=== PATIENT | male | born 1950 | race Caucasian/White ===

== ENCOUNTER 2016-10-23 05:32 | Emergency (ER) | payer MEDICARE, OTHER ==
[2016-10-23] MEDS ORDERED: NORMAL SALINE 1000 ML 1,000 ML IV ONE (06:35)
[2016-10-23] MEDS ORDERED: MECLIZINE HCL 25 MG TABLET PO ONE (06:36)
--- NOTE | 2016-10-23 06:46 | ER Document Report ---
ED Cardiac - General Mode of Arrival: Ambulatory Information source: Patient TRAVEL OUTSIDE OF THE [place] IN LAST 30 DAYS: No <TRACI PALMER - Last Filed: 10/23/16 06:40> <MICHAEL PEREIRA - Last Filed: 10/23/16 08:25> - General Chief Complaint: Palpitations Stated Complaint: DIZZINESS/PALPATIONS Time Seen by Provider: 10/23/16 06:12 Notes: Patient is a 66 year old male who presents to the ED with complaints of palpitations, dizziness (room spinning) and feeling lightheaded and weak this morning when he woke up to take his dogs outside around 0400 this morning. Patient states he was nauseous but denies any vomiting. Patient states that he checked his blood pressure and it was 158/86, he has had high blood pressure in the past. Patient states he also has had the palpitations in the past. Last year around January patient has similar symptoms had wore a Holter monitor that showed PVCs but was otherwise normal. Patient has not had a chance to check his blood sugar yet this morning. He denies diaphoresis. (TRACI PALMER) - Related Data Allergies/Adverse Reactions: codeine Allergy (Verified 10/23/16 05:34) diclofenac sodium [From Voltaren] Allergy (Verified 10/23/16 05:34) RASH Sulfa (Sulfonamide Antibiotics) Allergy (Verified 10/23/16 05:34) Past Medical History - General Information source: Patient - Social History Smoking Status: Never Smoker Chew tobacco use (# tins/day): No Frequency of alcohol use: None Drug Abuse: None Family History: Reviewed & Not Pertinent, CAD - [place] (uncle)., Other - Lung CA ( father). Pulmonary Medical History: Reports: Hx Pneumonia EENT Medical History: Reports: Nose - seasonal allergies Endocrine Medical History: Reports: Hx Diabetes Mellitus Type 2 - on metformin. GI Medical History: Reports: Hx Gastroesophageal Reflux Disease, Hx Hepatitis - HEP B 30 YRS AGO. Infectious Medical History: Reports: Hx Hepatitis - HEP B 30 YRS AGO. - Immunizations Hx Diphtheria, Pertussis, Tetanus Vaccination: No <TRACI PALMER - Last Filed: 10/23/16 06:40> Review of Systems - Review of Systems Constitutional: See HPI, Weakness. denies: Diaphoresis EENT: No symptoms reported Cardiovascular: See HPI, Palpitations, Dizziness, Lightheaded Respiratory: No symptoms reported Gastrointestinal: See HPI, Nausea. denies: Vomiting Genitourinary: No symptoms reported Male Genitourinary: No symptoms reported Musculoskeletal: No symptoms reported Skin: No symptoms reported Hematologic/Lymphatic: No symptoms reported Neurological/Psychological: See HPI, Weakness <TRACI PALMER - Last Filed: 10/23/16 06:40> Physical Exam - General General appearance: Appears well, Alert In distress: None - HEENT Head: Normocephalic, Atraumatic Eyes: Other - some lateral gaze nystagmus, has some of his symptoms when turning is head and when he sat up Pupils: PERRL - Respiratory Respiratory status: No respiratory distress Breath sounds: Normal - Cardiovascular Rhythm: Regular Heart sounds: Normal auscultation Murmur: No - Abdominal Inspection: Normal - Back Back: Normal - Extremities General upper extremity: Normal inspection, Normal ROM General lower extremity: Normal inspection, Normal ROM. No: Edema - Neurological Neuro grossly intact: Yes - Psychological Associated symptoms: Normal affect, Normal mood - Skin Skin Temperature: Warm Skin Moisture: Dry Skin Color: Normal <TRACI PALMER - Last Filed: 10/23/16 06:40> - Vital signs Vitals: Temp Pulse Resp BP Pulse Ox 97.3 F 75 20 155/70 H 97 10/23/16 05:34 10/23/16 05:34 10/23/16 05:34 10/23/16 05:34 10/23/16 05:34 Course <TRACI PALMER - Last Filed: 10/23/16 06:40> - Laboratory Result Diagrams: 10/23/16 06:15 10/23/16 06:15 - EKG Interpretation by [place] EKG shows normal: Sinus rhythm, [place], Intervals, QRS Complexes, ST-T Waves Rate: Normal - 72 Rhythm: NSR [place]/QRS: RBBB - Incomplete right bundle branch block When compared to previous EKG there are: No significant change <MICHAEL PEREIRA - Last Filed: 10/23/16 08:25> - Re-evaluation Re-evalutation: 10/23/16 08:22 Patient was feeling much better when he got up and walked to the bathroom recently to get a urine specimen. This was about 1 hour after he was given the Antivert and 1 L of IV fluids. Urine is a little concentrated. There has been no ectopy seen on monitoring since the patient was first placed on monitors. EKG done when he arrived did not show any irregularity or ectopy. (MICHAEL PEREIRA) - Vital Signs Vital signs: Temp Pulse Resp BP Pulse Ox 97.3 F 75 18 147/85 H 100 10/23/16 05:34 10/23/16 05:34 10/23/16 06:20 10/23/16 06:06 10/23/16 06:06 - Laboratory Laboratory results interpreted by me: 10/23/16 06:15 Glucose 139 H Creatine Kinase 203 H Discharge <TRACI PALMER - Last Filed: 10/23/16 06:40> <MICHAEL PEREIRA - Last Filed: 10/23/16 08:25> - Discharge Clinical Impression: Vertigo, Palpitations Condition: Stable Disposition: HOME, SELF-CARE Additional Instructions: Vertigo: You have experienced an episode of vertigo -- a whirling dizziness which may be accompanied by nausea and vomiting or staggering. Vertigo is often caused by an irritation of the inner ear, in which case it is called labyrinthitis. It can also be a symptom of a degenerating inner ear, nerve damage, or brain injury. Your physician has evaluated you to determine whether any further testing is necessary. Vertigo is often treated with dramamine or meclizine. These medications are helpful, but stronger medication may be needed if you are vomiting. Rest in bed. You should not drive or operate machinery until completely better. It may take one to three weeks for recovery. If there are new symptoms, such as decreased hearing or vision, severe headache, weakness or faintness, or confusion, call the physician. RETURN TO THE EMERGENCY ROOM IF ANY NEW OR WORSENING SYMPTOMS. Prescriptions: Meclizine HCl [Antivert 25 mg Tablet] 25 mg PO TID PRN #25 tablet PRN Reason: Referrals: TAYLOR SALCIDO MD [Primary Care Provider] - Follow up as needed Scribe Attestation: 10/23/16 07:07 I personally performed the services described in the documentation, reviewed and edited the documentation which was dictated to the scribe in my presence, and it accurately records my words and actions. (RANDALL,MICHAEL) Scribe Documentation - Scribe Written by William:: william Morris, 10/23/2016, 0641 acting as scribe for :: Randall <TRACI PALMER - Last Filed: 10/23/16 06:40>
[2016-10-23 06:55] LABS: ABSOLUTE BASOPHILS # (AUTO) 0.1 10^3/uL (0.0-0.2); ABSOLUTE EOSINOPHILS # (AUTO) 0.2 10^3/uL (0.0-0.6); ABSOLUTE MONOCYTES (AUTO) 0.4 10^3/uL (0.1-1.4); ABSOLUTE NEUT (AUTO) 3.7 10^3/uL (1.7-8.2); EOSINOPHILS % (AUTO) 2.9 % (0-6); HEMATOCRIT 40.8 % (37.9-51.0); HEMOGLOBIN 13.7 g/dL (13.5-17.0); HGB HCT DIFFERENCE 0.3; LYMPHOCYTES % (AUTO) 18.9 % (13-45); MEAN CORPUSCULAR HGB CONC 33.7 g/dL (32.0-36.0); MEAN CORPUSCULAR VOLUME 89 fl (80-97); MONOCYTES % (AUTO) 7.3 % (3-13); RED BLOOD COUNT 4.59 10^6/uL (4.35-5.55); RED CELL DISTRIBUTION WIDTH 12.8 % (11.5-14.0); SEGMENTED NEUTROPHILS % (AUTO) 69.9 % (42-78); WHITE BLOOD COUNT 5.3 10^3/uL (4.0-10.5)
[2016-10-23 07:12] LABS: ALANINE AMINOTRANSFERASE 32 U/L (21-72); ALBUMIN 4.5 g/dL (3.5-5.0); ALKALINE PHOSPHATASE 77 U/L (38-126); ANION GAP 14 (5-19); ASPARTATE AMINO TRANSFERASE 24 U/L (17-59); BILIRUBIN,DIRECT 0.3 mg/dL (0.0-0.4); BILIRUBIN,TOTAL 0.3 mg/dL (0.2-1.3); BLOOD UREA NITROGEN 17 mg/dL (7-20); CALCIUM 9.8 mg/dL (8.4-10.2); CARBON DIOXIDE 24 mmol/L (22-30); CHLORIDE 104 mmol/L (98-107); CREATINE KINASE 203 U/L (55-170); CREATININE RESULT 0.94 mg/dL (0.52-1.25); GLUCOSE 139 mg/dL (75-110); POTASSIUM 4.2 mmol/L (3.6-5.0); SODIUM 141.6 mmol/L (137-145); TOTAL PROTEIN 7.5 g/dL (6.3-8.2)
[2016-10-23 08:54] VITALS: BP 133/78
--- NOTE | 2016-10-23 10:24 | EKG REPORT ---
SEVERITY:- ABNORMAL ECG - SINUS RHYTHM INCOMPLETE RIGHT BUNDLE BRANCH BLOCK : Confirmed by: Josh Mason 23-Oct-2016 10:23:35
== END 2016-10-23 08:53 | disposition home or self-care (01) ==
LOC: ER 05:32
DX: R00.2 Palpitations (principal); R42 Dizziness and giddiness; R11.0 Nausea; I45.10 Unspecified right bundle-branch block; E11.9 Type 2 diabetes mellitus without complications; Z88.5 Allergy status to narcotic agent; Z88.2 Allergy status to sulfonamides; Z88.8 Allergy status to other drugs, medicaments and biological substances
CPT/HCPCS: 93005; 99285; 36415; 82550; 85025; 80053; 84484; 93010; A9270; J7030

== ENCOUNTER 2017-04-08 07:52 | Day surgery (SDC) | payer MEDICARE, OTHER ==
[~2017-04-08 07:52] MED LIST: EPINEPHRINE INJ 1 MG/10 ML DISP.SYRIN ONE; FLUMAZENIL INJ 0.5 MG/5 ML VIAL ONE; GLUCAGON,HUMAN RECOMB 1 MG INJ ONE; GLYCOPYRROLATE INJ 0.4 MG/2 ML VIAL ONE; NALOXONE HCL INJ/PF 0.4 MG/1 ML SDV ONE; ONDANSETRON HCL INJ/PF 4 MG/2 ML SDV ONE
[2017-04-08 09:13] LABS: HEMATOCRIT 42.1 % (37.9-51.0); HEMOGLOBIN 14.2 g/dL (13.5-17.0); RED BLOOD COUNT 4.78 10^6/uL (4.35-5.55); WHITE BLOOD COUNT 4.9 10^3/uL (4.0-10.5)
[2017-04-08 09:14] LABS: MEAN CORPUSCULAR HEMOGLOBIN 29.7 pg (27.0-33.4); MEAN CORPUSCULAR HGB CONC 33.7 g/dL (32.0-36.0); MEAN CORPUSCULAR VOLUME 88 fl (80-97); PLATELET COUNT 256 10^3/uL (150-450); RED CELL DISTRIBUTION WIDTH 12.6 % (11.5-14.0)
[2017-04-08] MEDS: FENTANYL CITRATE INJ/PF 100 MCG/2 ML AMPUL ONE ×2 (09:32→09:46)
[2017-04-08] MEDS: MIDAZOLAM 2 MG/2 ML INJ ONE ×4 (09:34→09:48)
--- NOTE | 2017-04-08 10:31 | Operative Report ---
Operative Report DATE OF SURGERY: 04/08/17 PREOPERATIVE DIAGNOSIS: History of colon polyp. History of prostate nodule. POSTOPERATIVE DIAGNOSIS: History of colon polyp. Diverticulosis of the colon. Left prostatic nodule. OPERATION: Colonoscopy. SURGEON: CARLIE VALENTIN ANESTHESIA: Moderate Sedation TISSUE REMOVED OR ALTERED: None COMPLICATIONS: None ESTIMATED BLOOD LOSS: None INTRAOPERATIVE FINDINGS: Scattered large diverticuli throughout the left colon. Small left prostate BB sized smooth nodule. PROCEDURE: Informed consent was obtained. Patient was brought to the endoscopy suite. IV sedation with Versed and fentanyl was administered. Digital rectal exam revealed a small BB size smooth nodule on the prostate on the left side. Otherwise no palpable perianal masses. Endoscope was passed via the patient's anus it was fed to the cecum. Bowel prep was fair with film of green liquid covering the colon requiring irrigation aspiration to obtained adequate visualization. The cecum and right colon appeared normal. Transverse colon appeared normal. On the left side of the colon patient had diverticuli, large ones in the sigmoid colon. But no polyps and no masses were identified. The rectum appeared normal. Patient tolerated procedure well with no apparent complications and was taken to the recovery area in stable condition. Recommend repeat colonoscopy in 3 years with his history of colon polyps in the past and the less than perfect bowel prep with this colonoscopy.
--- NOTE | 2017-04-08 10:33 | PDOC DISCHARGE SUMMARY ---
Discharge Summary (SDC) - Discharge Final Diagnosis: Prostatic nodule. Left and sigmoid colon Diverticulosis. History of colon polyp Date of Surgery: 04/08/17 Discharge Date: 04/08/17 Condition: Good Treatment or Instructions: Underwent colonoscopy. July discharge patient home when met discharge criteria. Follow-up with me in a couple weeks. Referrals: TAYLOR SALCIDO MD [Primary Care Provider] - Discharge Diet: As Tolerated Discharge Activity: Activity As Tolerated Report the Following to Your Physician Immediately: Increase in Pain, Fever over 101 Degrees, Unusual Bleeding
[2017-04-08 13:08] VITALS: BP 123/71
== END 2017-04-08 11:10 | disposition home or self-care (01) ==
LOC: END 07:52
PROVIDERS: ATTEND Surgery
PROC: 0DJD8ZZ Inspection of Lower Intestinal Tract, Via Natural or Artificial Opening Endoscopic (ICD-10-PCS; principal; 2017-04-08 09:15)
DX: Z12.11 Encounter for screening for malignant neoplasm of colon (principal); K57.30 Diverticulosis of large intestine without perforation or abscess without bleeding; N40.2 Nodular prostate without lower urinary tract symptoms; Z86.010 Personal history of colon polyps; M19.90 Unspecified osteoarthritis, unspecified site; E11.9 Type 2 diabetes mellitus without complications; Z88.2 Allergy status to sulfonamides; Z87.891 Personal history of nicotine dependence; Z79.84 Long term (current) use of oral hypoglycemic drugs; Z79.899 Other long term (current) drug therapy
CPT/HCPCS: 36415; 82962; 85027; G0121; J2250; J3010; J1610; 45378; J0171; J2310; J2405; J3490

== ENCOUNTER → 2017-06-23 | Outpatient (CLI) | payer MEDICARE, OTHER ==
[2017-06-23 08:25] LABS: ABSOLUTE BASOPHILS # (AUTO) 0.1 10^3/uL (0.0-0.2); ABSOLUTE EOSINOPHILS # (AUTO) 0.3 10^3/uL (0.0-0.6); ABSOLUTE LYMPHOCYTES (AUTO) 1.5 10^3/uL (0.5-4.7); ABSOLUTE MONOCYTES (AUTO) 0.5 10^3/uL (0.1-1.4); ABSOLUTE NEUT (AUTO) 3.1 10^3/uL (1.7-8.2); BASOPHILS % (AUTO) 1.5 % (0-2); EOSINOPHILS % (AUTO) 5.8 % (0-6); HEMATOCRIT 38.1 % (37.9-51.0); LYMPHOCYTES % (AUTO) 27.7 % (13-45); MEAN CORPUSCULAR HEMOGLOBIN 29.8 pg (27.0-33.4); MEAN CORPUSCULAR VOLUME 88 fl (80-97); MONOCYTES % (AUTO) 8.8 % (3-13); PLATELET COUNT 245 10^3/uL (150-450); RED BLOOD COUNT 4.34 10^6/uL (4.35-5.55); RED CELL DISTRIBUTION WIDTH 12.8 % (11.5-14.0); SEGMENTED NEUTROPHILS % (AUTO) 56.2 % (42-78); TOTAL CELLS COUNTED % (AUTO) 100 %; WHITE BLOOD COUNT 5.5 10^3/uL (4.0-10.5)
[2017-06-23 08:59] LABS: ALANINE AMINOTRANSFERASE 32 U/L (21-72); ALKALINE PHOSPHATASE 69 U/L (38-126); ANION GAP 10 (5-19); ASPARTATE AMINO TRANSFERASE 27 U/L (17-59); BILIRUBIN,DIRECT 0.3 mg/dL (0.0-0.4); BILIRUBIN,TOTAL 0.5 mg/dL (0.2-1.3); BLOOD UREA NITROGEN 14 mg/dL (7-20); CALCIUM 9.4 mg/dL (8.4-10.2); CARBON DIOXIDE 28 mmol/L (22-30); CHLORIDE 104 mmol/L (98-107); CHOLESTEROL 115.52 mg/dL (0-200); GLUCOSE 127 mg/dL (75-110); POTASSIUM 4.7 mmol/L (3.6-5.0); SODIUM 142.4 mmol/L (137-145); TOTAL PROTEIN 6.8 g/dL (6.3-8.2); TRIGLYCERIDES 84 mg/dL (<150)
[2017-06-23 09:11] LABS: DIRECT LDL 53 mg/dL (<100)
[2017-06-23 09:12] LABS: FREE T4 (FREE THYROXINE) 0.83 ng/dL (0.78-2.19)
[2017-06-23 09:25] LABS: THYROID STIMULATING HORMONE 2.07 uIU/mL (0.47-4.68)
== END ==
LOC: OD 07:42
PROVIDERS: ATTEND Internal Medicine
DX: E78.2 Mixed hyperlipidemia (principal); N40.2 Nodular prostate without lower urinary tract symptoms; E11.9 Type 2 diabetes mellitus without complications; E02 Subclinical iodine-deficiency hypothyroidism; Z09 Encounter for follow-up examination after completed treatment for conditions other than malignant neoplasm
CPT/HCPCS: 36415; 80053; 80061; 84153; 84439; 84443; 85025

== ENCOUNTER 2017-10-28 07:46 | Emergency (ER) | payer MEDICARE ==
[2017-10-28] MEDS ORDERED: NORMAL SALINE 1000 ML 1,000 ML IV ONE ×3 (08:36→12:35)
[2017-10-28] MEDS ORDERED: KETOROLAC TROMETHAMINE INJ/PF 30 MG/1 ML SDV IV ONE (08:38)
[2017-10-28 08:41] LABS: ABSOLUTE LYMPHOCYTES (AUTO) 0.5 10^3/uL (0.5-4.7); ABSOLUTE MONOCYTES (AUTO) 0.8 10^3/uL (0.1-1.4); ABSOLUTE NEUT (AUTO) 7.6 10^3/uL (1.7-8.2); BASOPHILS % (AUTO) 0.3 % (0-2); EOSINOPHILS % (AUTO) 0.2 % (0-6); HEMATOCRIT 35.4 % (37.9-51.0); HEMOGLOBIN 12.2 g/dL (13.5-17.0); LYMPHOCYTES % (AUTO) 5.9 % (13-45); MEAN CORPUSCULAR HEMOGLOBIN 30.2 pg (27.0-33.4); MEAN CORPUSCULAR HGB CONC 34.5 g/dL (32.0-36.0); MEAN CORPUSCULAR VOLUME 88 fl (80-97); MONOCYTES % (AUTO) 9.1 % (3-13); PLATELET COUNT 195 10^3/uL (150-450); RED BLOOD COUNT 4.04 10^6/uL (4.35-5.55); RED CELL DISTRIBUTION WIDTH 12.4 % (11.5-14.0); SEGMENTED NEUTROPHILS % (AUTO) 84.5 % (42-78); TOTAL CELLS COUNTED % (AUTO) 100 %
[2017-10-28 08:59] LABS: ALANINE AMINOTRANSFERASE 24 U/L (21-72); ALBUMIN 3.2 g/dL (3.5-5.0); ALKALINE PHOSPHATASE 70 U/L (38-126); ANION GAP 10 (5-19); ASPARTATE AMINO TRANSFERASE 20 U/L (17-59); BILIRUBIN,DIRECT 0.2 mg/dL (0.0-0.4); BLOOD UREA NITROGEN 17 mg/dL (7-20); CALCIUM 8.3 mg/dL (8.4-10.2); CARBON DIOXIDE 22 mmol/L (22-30); CHLORIDE 106 mmol/L (98-107); GLUCOSE 145 mg/dL (75-110); LIPASE 53.4 U/L (23-300); POTASSIUM 4.5 mmol/L (3.6-5.0); SODIUM 138.2 mmol/L (137-145); TOTAL PROTEIN 6.1 g/dL (6.3-8.2)
--- NOTE | 2017-10-28 09:22 | ER Document Report ---
ED GI/ - General Mode of Arrival: Ambulatory Information source: Patient TRAVEL OUTSIDE OF THE [place] IN LAST 30 DAYS: No <YISEL NAJERA - Last Filed: 10/28/17 09:46> <MICHAEL PEREIRA - Last Filed: 10/28/17 14:46> - General Chief Complaint: Nausea/Vomiting Stated Complaint: WEAKNESS Time Seen by Provider: 10/28/17 08:21 Notes: 67-year-old male that presents to the emergency department today with complaints of nausea, vomiting, and associated abdominal pain. Patient states he began vomiting yesterday which progressed to dry heaves last night. Patient states this morning when he woke up at around 0700 he was trying to get to the toilet to vomit again and he lost his balance and fell. Patient states he had this abdominal pain before the vomiting began. He describes the pain as coming in waves and feeling "muscular". Patient states since vomiting he has started to become dizzy and lightheaded. Patient states his blood pressures usually run in the 110s over 70s. The patient's blood pressure is currently 99/65 after 1 liter of saline. Patient denies any diarrhea, fevers, or injury when he lost his balance today. (YISEL NAJERA) - Related Data Allergies/Adverse Reactions: azithromycin Allergy (Verified 10/28/17 07:57) Dizziness codeine Allergy (Verified 10/28/17 07:57) diclofenac sodium [From Voltaren] Allergy (Verified 10/28/17 07:57) RASH Sulfa (Sulfonamide Antibiotics) Allergy (Verified 10/28/17 07:57) Past Medical History - General Information source: Patient - Social History Smoking Status: Unknown if Ever Smoked Cigarette use (# per day): No Chew tobacco use (# tins/day): No Frequency of alcohol use: Social Drug Abuse: None Lives with: Family Family History: Reviewed & Not Pertinent, CAD - [place] (uncle)., Other - Lung CA ( father). Patient has suicidal ideation: No Patient has homicidal ideation: No Pulmonary Medical History: Reports: Hx Pneumonia - ABOUT 4YRS AGO Endocrine Medical History: Reports: Hx Diabetes Mellitus Type 2 Renal/ Medical History: Reports: Hx Kidney Stones GI Medical History: Reports: Hx Gastroesophageal Reflux Disease, Hx Hepatitis - HEP B 30 YRS AGO. Musculoskeletal Medical History: Reports Hx Arthritis - HANDS Infectious Medical History: Reports: Hx Hepatitis - HEP B 30 YRS AGO. - Immunizations Hx Diphtheria, Pertussis, Tetanus Vaccination: Yes - [id number] Hx Pneumococcal Vaccination: 12/01/16 <YISEL NAJERA - Last Filed: 10/28/17 09:46> Review of Systems - Review of Systems Constitutional: denies: Fever EENT: No symptoms reported Cardiovascular: See HPI, Dizziness, Lightheaded Respiratory: No symptoms reported Gastrointestinal: See HPI, Abdominal pain, Nausea, Vomiting. denies: Diarrhea Genitourinary: No symptoms reported Male Genitourinary: No symptoms reported Musculoskeletal: No symptoms reported Skin: No symptoms reported Hematologic/Lymphatic: No symptoms reported Neurological/Psychological: No symptoms reported -: Yes All other systems reviewed and negative <YISEL NAJERA - Last Filed: 10/28/17 09:46> Physical Exam <YISEL NAJERA - Last Filed: 10/28/17 09:46> <MICHAEL PEREIRA - Last Filed: 10/28/17 14:46> - Vital signs Vitals: Temp Pulse Resp BP Pulse Ox 97.8 F 84 10 L 106/59 L 94 10/28/17 08:08 10/28/17 08:08 10/28/17 08:08 10/28/17 08:08 10/28/17 08:08 - Notes Notes: Physical Exam: General: Alert, appears well. HEENT: Normocephalic. Atraumatic. PERRL. Extraocular movements intact. Oropharynx clear. Dry mucous membranes. Neck: Supple. Non-tender. Respiratory: No respiratory distress. Clear and equal breath sounds bilaterally. Cardiovascular: Regular rate and rhythm. Abdominal: Normal Inspection. Non-tender. No distension. Normal Bowel Sounds. Back: Non-tender. No deformity or step off. Extremities: Moves all four extremities. Upper extremities: Normal inspection. Normal ROM. Lower extremities: Normal inspection. No edema. Normal ROM. Neurological: Normal cognition. AAOx4. Normal speech. Psychological: Normal affect. Normal Mood. Skin: Warm. Dry. Normal color. (YISEL NAJERA) Course - Laboratory Result Diagrams: 10/28/17 08:22 10/28/17 08:22 <YISEL NAJERA - Last Filed: 10/28/17 09:46> - Laboratory Result Diagrams: 10/28/17 08:22 10/28/17 08:22 <MICHAEL PEREIRA - Last Filed: 10/28/17 14:46> - Re-evaluation Re-evalutation: 10/28/17 14:43 After 3 L of normal saline IV, patient feels much better and his blood pressure is in the 120 systolic range. His nausea continues to be under control with the initial dose of Zofran. (MICHAEL PEREIRA) - Vital Signs Vital signs: Temp Pulse Resp BP Pulse Ox 97.8 F 84 17 102/53 L 96 10/28/17 08:08 10/28/17 08:08 10/28/17 13:01 10/28/17 13:00 10/28/17 13:01 - Laboratory Laboratory results interpreted by me: 10/28/17 10/28/17 10/28/17 08:22 08:22 08:45 RBC 4.04 L Hgb 12.2 L Hct 35.4 L Seg Neutrophils % 84.5 H Lymphocytes % 5.9 L Glucose 145 H Calcium 8.3 L Total Protein 6.1 L Albumin 3.2 L Urine Blood SMALL H Urine Urobilinogen 2.0 H Critical Care Note - Critical Care Note Total time excluding time spent on procedures (mins): 35 <MICHAEL PEREIRA - Last Filed: 10/28/17 14:46> Discharge <YISEL NAJERA - Last Filed: 10/28/17 09:46> <MICHAEL PEREIRA - Last Filed: 10/28/17 14:46> - Discharge Clinical Impression: Nausea and vomiting Qualifiers: Vomiting type: unspecified Vomiting Intractability: non-intractable Qualified Code(s): R11.2 - Nausea with vomiting, unspecified Hypotension Qualifiers: Hypotension type: other hypotension type Qualified Code(s): I95.89 - Other hypotension Abdominal pain Qualifiers: Abdominal location: generalized Qualified Code(s): R10.84 - Generalized abdominal pain Condition: Stable Disposition: HOME, SELF-CARE Additional Instructions: Nausea or Vomiting, Nonspecific: Vomiting (or nausea without vomiting) can be caused by many different problems. Of course, it can mean that something's wrong with the stomach, such as "stomach flu," ulcers, or inflammation. But it can also be a symptom of a problem that has nothing to do with the stomach or intestines. Vomiting is common with severe headaches, earaches, and tonsillitis. We see it with pneumonia or heart attacks. Drugs can cause nausea. Many abdominal problems cause vomiting; for example, gallstones, kidney stones, pancreatitis, and intestinal obstruction (blocked bowels). In most cases, curing the vomiting depends on fixing the problem that caused it. For temporary relief, we may use an anti-nausea medicine. For home use, we can prescribe suppositories, chewable pills, pills that dissolve in the mouth, or liquid anti-nausea drugs. If the vomiting seems to be caused by a problem in the stomach, acid-suppressing drugs may be prescribed as well. It's important to avoid dehydration. Sip clear liquids. Take increasing amounts of fluid over the first 24 hours. Then start small amounts of bland foods (such as dry toast, applesauce, mashed potato). Avoid aspirin, tobacco, and alcohol. Gradually resume your usual diet. If the vomiting worsens, if the problem that's making you vomit worsens, or if there's evidence of bleeding in the stomach (such as black, tarry stool, bloody or black vomit, or lightheadedness), you should return immediately. Call your doctor if you aren't improved in 24 to 36 hours. Take the Zofran as prescribed for nausea if needed. Drink small sips of cool clear liquids throughout the day in the evening. Follow-up with your doctor if not improving. RETURN TO THE EMERGENCY ROOM IF ANY NEW OR WORSENING SYMPTOMS. Prescriptions: Ondansetron [Zofran Odt 4 mg Tablet] 1 - 2 tab PO Q4 PRN #10 tab.rapdis PRN Reason: For Nausea/Vomiting Referrals: TAYLOR SALCIDO MD [Primary Care Provider] - Follow up as needed Scribe Attestation: 10/28/17 11:12 I personally performed the services described in the documentation, reviewed and edited the documentation which was dictated to the scribe in my presence, and it accurately records my words and actions. (MICHAEL PEREIRA) Scribe Documentation - Scribe Written by Scribe:: Efra Winston, 10/28/2017 0949 acting as scribe for :: Dea <YISEL NAJERA - Last Filed: 10/28/17 09:46>
[2017-10-28 09:37] LABS: APPEARANCE,URINE CLEAR; BILIRUBIN,URINE NEGATIVE (NEGATIVE); COLOR,URINE YELLOW; GLUCOSE, URINE NEGATIVE (NEGATIVE); KETONES,URINE NEGATIVE (NEGATIVE); LEUKOCYTE ESTERASE,URINE NEGATIVE (NEGATIVE); NITRITE,URINE NEGATIVE (NEGATIVE); PROTEIN,URINE NEGATIVE (NEGATIVE); URINE SPECIFIC GRAVITY 1.021
[2017-10-28] MEDS ORDERED: ONDANSETRON ODT 4 MG TAB (6 TAB/ER DISP) PO PRN (14:44)
[2017-10-28 15:16] VITALS: BP 106/55
== END 2017-10-28 15:27 | disposition home or self-care (01) ==
LOC: ER 07:46
DX: R11.2 Nausea with vomiting, unspecified (principal); I95.9 Hypotension, unspecified; R10.84 Generalized abdominal pain; R42 Dizziness and giddiness; E11.9 Type 2 diabetes mellitus without complications; Z87.19 Personal history of other diseases of the digestive system; Z87.442 Personal history of urinary calculi; Z88.1 Allergy status to other antibiotic agents; Z88.5 Allergy status to narcotic agent; Z88.2 Allergy status to sulfonamides; Z88.6 Allergy status to analgesic agent
CPT/HCPCS: 99285; 96361; 96374; 36415; 83690; 85025; 80053; 81001; J1885; J7030; A9270

== ENCOUNTER → 2017-11-05 | Outpatient (CLI) | payer MEDICARE, OTHER ==
--- NOTE | 2017-11-05 09:59 | RADIOLOGY REPORT (SQ) ---
EXAM DESCRIPTION: CHEST PA/LATERAL COMPLETED DATE/TIME: 11/05/2017 9:45 am REASON FOR STUDY: LOBULAR PNEUMONIA COMPARISON: None. EXAM PARAMETERS: NUMBER OF VIEWS: two views TECHNIQUE: Digital Frontal and Lateral radiographic views of the chest acquired. RADIATION DOSE: NA LIMITATIONS: none FINDINGS: LUNGS AND PLEURA: There is segmental airspace disease the left upper lobe. The right lung is clear. MEDIASTINUM AND HILAR STRUCTURES: No masses or contour abnormalities. HEART AND VASCULAR STRUCTURES: Heart normal size. No evidence for failure. BONES: No acute findings. HARDWARE: None in the chest. OTHER: No other significant finding. IMPRESSION: Left upper lobe pneumonia. TECHNICAL DOCUMENTATION: JOB ID: [id number] [email or web address]- All Rights Reserved Reading location - IP/workstation name: [email or web address]
== END ==
LOC: OD 09:21
PROVIDERS: ATTEND Internal Medicine
DX: J18.1 Lobar pneumonia, unspecified organism (principal)
CPT/HCPCS: 71046

== ENCOUNTER → 2018-04-07 | Outpatient (CLI) | payer MEDICARE, OTHER ==
[2018-04-07 09:13] LABS: ALANINE AMINOTRANSFERASE 34 U/L (21-72); ALBUMIN 4.7 g/dL (3.5-5.0); ALKALINE PHOSPHATASE 80 U/L (38-126); ANION GAP 11 (5-19); ASPARTATE AMINO TRANSFERASE 32 U/L (17-59); BILIRUBIN,DIRECT 0.2 mg/dL (0.0-0.4); BILIRUBIN,TOTAL 0.6 mg/dL (0.2-1.3); BLOOD UREA NITROGEN 19 mg/dL (7-20); CALCIUM 10.1 mg/dL (8.4-10.2); CARBON DIOXIDE 27 mmol/L (22-30); CHLORIDE 104 mmol/L (98-107); CHOLESTEROL 131.52 mg/dL (0-200); GLUCOSE 133 mg/dL (75-110); POTASSIUM 5.1 mmol/L (3.6-5.0); SODIUM 142.1 mmol/L (137-145); TOTAL PROTEIN 7.7 g/dL (6.3-8.2); TRIGLYCERIDES 77 mg/dL (<150)
[2018-04-07 09:24] LABS: DIRECT LDL 74 mg/dL (<100)
[2018-04-08 12:38] LABS: CREATININE URINE 231.1 mg/dL (Not Estab.); MICROALBUMIN URINE 18.9 ug/mL (Not Estab.)
== END ==
LOC: OD 07:52
PROVIDERS: ATTEND Internal Medicine
DX: E11.9 Type 2 diabetes mellitus without complications (principal); E78.2 Mixed hyperlipidemia
CPT/HCPCS: 36415; 80053; 80061; 82043; 82570; 83036

== ENCOUNTER → 2020-03-27 | Outpatient (CLI) | payer MEDICARE, OTHER ==
[~2020-03-27] MED LIST changes: +COVID-19 VACCINE (PFIZER)/PF 30 MCG/0.3 ML VIAL IM ONE; -EPINEPHRINE INJ 1 MG/10 ML DISP.SYRIN ONE; +EPINEPHRINE INJ/PF 1 MG/1 ML AMPULE IM PRN; -FLUMAZENIL INJ 0.5 MG/5 ML VIAL ONE; -GLUCAGON,HUMAN RECOMB 1 MG INJ ONE; -GLYCOPYRROLATE INJ 0.4 MG/2 ML VIAL ONE; -NALOXONE HCL INJ/PF 0.4 MG/1 ML SDV ONE; -ONDANSETRON HCL INJ/PF 4 MG/2 ML SDV ONE
== END ==
LOC: EMPHEALTH 18:21
PROVIDERS: ATTEND Internal Medicine
DX: Z23 Encounter for immunization (principal)
CPT/HCPCS: 91300